=== PATIENT | female | born 1985 | race Caucasian/White ===

== ENCOUNTER 2017-07-22 17:38 | Emergency (ER) | payer SELFPAY ==
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
[2017-07-22 21:07] VITALS: BP 109/76
== END 2017-07-22 21:06 | disposition home or self-care (01) ==
LOC: ED 17:38
DX: S06.0X0A Concussion without loss of consciousness, initial encounter (principal); S01.511A Laceration without foreign body of lip, initial encounter; V49.88XA Car occupant (driver) (passenger) injured in other specified transport accidents, initial encounter; Y92.410 Unspecified street and highway as the place of occurrence of the external cause; F17.200 Nicotine dependence, unspecified, uncomplicated
CPT/HCPCS: 70450; 99282